=== PATIENT | female | born 1940 | race Caucasian/White ===

== ENCOUNTER 2016-09-27 13:17 | Inpatient (IN) | payer MEDICARE ==
[~2016-09-27] VITALS: Ht 147.3 cm; Wt 65.8 kg
[~2016-09-27 13:17] MED LIST: ACET-2165 PO; BENA40TA2 PO; BISO5TAB15 PO; CHOL100028 PO; FEBU80TA PO; FOLI-43 PO; FURO-150 PO; GABA-531 PO; LEVE500T53 PO; METF-716 PO; NIFE90TA48 PO; PRAV20TA59 PO; PRED20TA PO; SSNOVOLOG SUBCUT; VENL75CA PO; WARF1TAB79 GT
[2016-09-27 13:25] VITALS: BP_SYST 130
[2016-09-27] MEDS ORDERED: MORPHINE 2 MG/ML INJ. SYRINGE IVP ONE (13:30)
[2016-09-27] MEDS ORDERED: ONDANSETRON HCL 4 MG/2 ML VIAL IVP ONE (13:30)
[2016-09-27 15:22] LABS: BASOPHILS % (AUTO) 0.2 % (0.0-2.0); EOSINOPHILS # (AUTO) 0.2 K/uL (0.0-0.4); EOSINOPHILS % (AUTO) 1.5 % (0.0-4.0); LYMPHOCYTES # (AUTO) 1.1 K/uL (1.0-5.5); LYMPHOCYTES % (AUTO) 7.5 % (20.5-51.5); MEAN CORPUSCULAR HEMOGLOBIN 31 pg (27-31); MEAN CORPUSCULAR HGB CONC 32 % (32-36); MEAN CORPUSCULAR VOLUME 95 fL (79.0-98.0); MONOCYTES # (AUTO) 0.8 K/uL (0.0-1.0); MONOCYTES % (AUTO) 5.2 % (1.7-9.3); NEUTROPHILS # (AUTO) 13.2 K/uL (1.8-7.7); NEUTROPHILS % (AUTO) 85.6 % (40.0-70.0); PLATELET COUNT (AUTO) 168 K/uL (130-430); RED BLOOD CELL COUNT(AUTO) 2.59 MIL/uL (4.2-6.2); RED CELL DISTRIBUTION WIDTH 13.6 % (9.0-15.0); WHITE BLOOD COUNT (AUTO) 15.3 K/uL (4.8-10.8)
[2016-09-27 15:28] LABS: HEMATOCRIT 24.7 % (36-48); HEMOGLOBIN 7.9 g/dL (12.0-16.0)
[2016-09-27 15:31] LABS: INR 1.2 (0.8-1.2); PROTHROMBIN TIME 12.7 SECS (9.5-12.5)
[2016-09-27 15:32] LABS: ALANINE AMINOTRANSFERASE 22 U/L (12-78); ANION GAP 9 (5-15); ASPARTATE AMINOTRANSFERASE 17 U/L (10-37); CALCIUM 8.2 mg/dL (8.4-11.0); CHLORIDE 97 mmol/L (98-107); CREATININE 2.54 mg/dL (0.55-1.30); GLUCOSE 223 mg/dL (70-99); POTASSIUM 3.6 mmol/L (3.5-5.1); SODIUM SERUM 133 mmol/L (136-145); TOTAL BILIRUBIN 0.3 mg/dL (0.0-1.0); TOTAL PROTEIN, SERUM 6.9 g/dL (6.4-8.3)
[2016-09-27 15:46] LABS: UREA NITROGEN, BLOOD 106 mg/dL (8-21)
[2016-09-27] MEDS ORDERED: NS 500 ML IV ONE (16:30)
[2016-09-27] MEDS ORDERED: NACL 0.9% 1,000 ML IV ONE (16:30)
[2016-09-27 19:24] VITALS: BP_SYST 147
[2016-09-27 19:25] LABS: BILIRUBIN,URINE NEGATIVE (NEGATIVE); BLOOD, URINE NEGATIVE (NEGATIVE); CLARITY/URINE CLEAR (CLEAR); COLOR,URINE YELLOW (YELLOW); GLUCOSE,URINE NEGATIVE (NEGATIVE); KETONES,URINE NEGATIVE (NEGATIVE); LEUKOCYTE ESTERASE ,URINE NEGATIVE (NEGATIVE); NITRITE, URINE NEGATIVE (NEGATIVE); PROTEIN URINE 1+ (NEGATIVE); UROBILINOGEN,URINE 0.2 (0.2-1.0)
[2016-09-27 19:36] LABS: BACTERIA,URINE FEW /HPF (None Seen); RBC,URINE 0-3 /HPF (0-3); WBC,URINE 0-3 /HPF (0-3)
[2016-09-27 19:37] LABS: MUCUS,URINE None Seen /LPF (None Seen)
[2016-09-27 20:00] VITALS: BP_SYST 143
[2016-09-27] MEDS ORDERED: PRAVASTATIN SODIUM 20 MG TABLET (PRAVACHOL) PO SCH (21:00)
[2016-09-27 21:21] LABS: BLOOD GAS PH 7.408 (7.350-7.450)
[2016-09-27 21:22] LABS: ABG TOTAL HEMOGLOBIN 9.1 G/dL (12.0-18.0); BLOOD GAS BASE EXCESS 0.3 mmol/L (-3.0-3.0); BLOOD GAS COHb% 0.3 % (0.5-1.5); BLOOD O2Hb% 92.2 % (94.0-97.0)
[2016-09-27] MEDS ORDERED: cefTRIAXone 1 GM IVPB PREMIX 50 ML IV ONE (21:30)
[2016-09-27] MEDS: cefTRIAXone 1 GM IVPB PREMIX 50 ML IV SCH (21:37)
[2016-09-27] MEDS: SIMVASTATIN 10 MG TABLET PO SCH (21:40)
[2016-09-27] MEDS: levETIRAcetam 500 MG TABLET PO SCH (21:40)
[2016-09-27] MEDS: NACL 0.9% 1,000 ML IV SCH (21:40)
[2016-09-27] MEDS ORDERED: DEXTROSE 50% JECT 50 ML DISP.SYRIN IVP PRN ×2 (23:15)
[2016-09-27] MEDS: INSULIN REGULAR, HUMAN 100 UNITS/ML, 10 ML VIAL (novoLIN R) SUBCUT PRN (23:26)
[2016-09-28] VITALS (7 sets, daily range): BP systolic 114–155
[2016-09-28 06:21] LABS: BASOPHILS # (AUTO) 0.1 K/uL (0.0-0.2); EOSINOPHILS # (AUTO) 0.1 K/uL (0.0-0.4); HEMOGLOBIN 8.4 g/dL (12.0-16.0); WHITE BLOOD COUNT (AUTO) 19.9 K/uL (4.8-10.8)
[2016-09-28 06:34] LABS: BASOPHILS % (AUTO) 0.4 % (0.0-2.0); EOSINOPHILS % (AUTO) 0.3 % (0.0-4.0); HEMATOCRIT 24.4 % (36-48); LYMPHOCYTES % (AUTO) 4.8 % (20.5-51.5); MEAN CORPUSCULAR HEMOGLOBIN 32 pg (27-31); MEAN CORPUSCULAR HGB CONC 35 % (32-36); MEAN CORPUSCULAR VOLUME 94 fL (79.0-98.0); MONOCYTES # (AUTO) 1.1 K/uL (0.0-1.0); MONOCYTES % (AUTO) 5.5 % (1.7-9.3); NEUTROPHILS # (AUTO) 17.6 K/uL (1.8-7.7); PLATELET COUNT (AUTO) 155 K/uL (130-430); RED BLOOD CELL COUNT(AUTO) 2.59 MIL/uL (4.2-6.2)
[2016-09-28 06:38] LABS: ALANINE AMINOTRANSFERASE 32 U/L (12-78); ANION GAP 7 (5-15); ASPARTATE AMINOTRANSFERASE 27 U/L (10-37); CHLORIDE 101 mmol/L (98-107); CREATININE 2.44 mg/dL (0.55-1.30); GLUCOSE 104 mg/dL (70-99); POTASSIUM 3.5 mmol/L (3.5-5.1); SODIUM SERUM 135 mmol/L (136-145); TOTAL BILIRUBIN 0.3 mg/dL (0.0-1.0); TOTAL PROTEIN, SERUM 7.4 g/dL (6.4-8.3); UREA NITROGEN, BLOOD 91 mg/dL (8-21)
[2016-09-28] MEDS: PREDNISONE 20 MG TABLET PO SCH (08:17)
[2016-09-28] MEDS: levETIRAcetam 500 MG TABLET PO SCH ×2 (08:17→20:32)
[2016-09-28] MEDS: NIFEDIPINE 90 MG TABLET.SA (PROCARDIA XL 90 MG) PO SCH (08:17)
[2016-09-28] MEDS: NACL 0.9% 1,000 ML IV SCH ×2 (08:18→20:34)
[2016-09-28] MEDS: BISOPROLOL FUMARATE 5 MG TABLET PO SCH (08:18)
[2016-09-28] MEDS: MORPHINE 2 MG/ML INJ. SYRINGE IVP PRN ×3 (08:24→17:27)
[2016-09-28] MEDS ORDERED: FEBUXOSTAT 80 MG PO SCH (09:00)
[2016-09-28] MEDS: INSULIN REGULAR, HUMAN 100 UNITS/ML, 10 ML VIAL (novoLIN R) SUBCUT PRN ×3 (11:08→20:36)
[2016-09-28] MEDS ORDERED: ALBUTEROL SULFATE 0.083% 2.5 MG/3 ML VIAL.NEB INH PRN (12:00)
[2016-09-28] MEDS ORDERED: IPRATROPIUM BROM 0.5 MG/2.5 ML VIAL.NEB (ATROVENT) INH PRN (12:00)
[2016-09-28] MEDS: IPRATROPIUM BROM 0.5 MG/2.5 ML VIAL.NEB (ATROVENT) INH SCH ×3 (15:36→23:30)
[2016-09-28] MEDS: ALBUTEROL SULFATE 0.083% 2.5 MG/3 ML VIAL.NEB INH SCH ×3 (15:36→23:30)
[2016-09-28] MEDS: cefTRIAXone 1 GM IVPB PREMIX 50 ML IV SCH (20:16)
[2016-09-28] MEDS: SIMVASTATIN 10 MG TABLET PO SCH (20:32)
[2016-09-28] MEDS: Effexor 37.5 MG TAB PO SCH (20:32)
[2016-09-29] VITALS (11 sets, daily range): BP systolic 112–141
[2016-09-29] MEDS: ALBUTEROL SULFATE 0.083% 2.5 MG/3 ML VIAL.NEB INH SCH ×6 (03:00→23:00)
[2016-09-29] MEDS: IPRATROPIUM BROM 0.5 MG/2.5 ML VIAL.NEB (ATROVENT) INH SCH ×6 (03:00→23:00)
[2016-09-29 06:45] LABS: BASOPHILS # (AUTO) 0.1 K/uL (0.0-0.2); BASOPHILS % (AUTO) 0.7 % (0.0-2.0); EOSINOPHILS % (AUTO) 0.1 % (0.0-4.0); HEMATOCRIT 22.3 % (36-48); HEMOGLOBIN 7.4 g/dL (12.0-16.0); LYMPHOCYTES # (AUTO) 0.8 K/uL (1.0-5.5); LYMPHOCYTES % (AUTO) 4.2 % (20.5-51.5); MEAN CORPUSCULAR HEMOGLOBIN 32 pg (27-31); MEAN CORPUSCULAR HGB CONC 33 % (32-36); MEAN CORPUSCULAR VOLUME 97 fL (79.0-98.0); MONOCYTES # (AUTO) 0.9 K/uL (0.0-1.0); MONOCYTES % (AUTO) 4.7 % (1.7-9.3); NEUTROPHILS # (AUTO) 17.6 K/uL (1.8-7.7); PLATELET COUNT (AUTO) 129 K/uL (130-430); RED CELL DISTRIBUTION WIDTH 13.3 % (9.0-15.0); WHITE BLOOD COUNT (AUTO) 19.4 K/uL (4.8-10.8)
[2016-09-29 07:13] LABS: ALANINE AMINOTRANSFERASE 32 U/L (12-78); ALBUMIN 2.5 g/dL (3.4-4.8); ANION GAP 9 (5-15); ASPARTATE AMINOTRANSFERASE 28 U/L (10-37); CALCIUM 7.6 mg/dL (8.4-11.0); CHLORIDE 101 mmol/L (98-107); CREATININE 2.38 mg/dL (0.55-1.30); GLUCOSE 150 mg/dL (70-99); POTASSIUM 3.6 mmol/L (3.5-5.1); SODIUM SERUM 134 mmol/L (136-145); TOTAL BILIRUBIN 0.2 mg/dL (0.0-1.0); TOTAL PROTEIN, SERUM 6.8 g/dL (6.4-8.3); UREA NITROGEN, BLOOD 81 mg/dL (8-21)
[2016-09-29 07:49] LABS: NEUTROPHILS % (AUTO) 90.3 % (40.0-70.0)
[2016-09-29] MEDS: ACETAMINOPHEN 325 MG TABLET PO PRN (08:47)
[2016-09-29] MEDS: Effexor 37.5 MG TAB PO SCH ×2 (08:47→20:26)
[2016-09-29] MEDS: levETIRAcetam 500 MG TABLET PO SCH ×2 (08:47→20:26)
[2016-09-29] MEDS: PREDNISONE 20 MG TABLET PO SCH (08:47)
[2016-09-29] MEDS: BISOPROLOL FUMARATE 5 MG TABLET PO SCH (08:47)
[2016-09-29] MEDS: NIFEDIPINE 90 MG TABLET.SA (PROCARDIA XL 90 MG) PO SCH (08:47)
[2016-09-29] MEDS: NACL 0.9% 1,000 ML IV SCH (08:48)
[2016-09-29] MEDS ORDERED: DIPHENHYDRAMINE INJ 50 MG/ML VIAL IVP PRN (09:00)
[2016-09-29] MEDS: MORPHINE 2 MG/ML INJ. SYRINGE IVP PRN ×2 (11:26→20:50)
[2016-09-29] MEDS: INSULIN REGULAR, HUMAN 100 UNITS/ML, 10 ML VIAL (novoLIN R) SUBCUT PRN ×3 (11:29→20:58)
[2016-09-29] MEDS: FEBUXOSTAT 80 MG PO SCH (12:28)
[2016-09-29] MEDS ORDERED: FUROSEMIDE 20 MG/2 ML VIAL IVP ONE (19:00)
[2016-09-29] MEDS: SIMVASTATIN 10 MG TABLET PO SCH (20:26)
[2016-09-29] MEDS: cefTRIAXone 1 GM IVPB PREMIX 50 ML IV SCH (20:27)
[2016-09-30] VITALS (7 sets, daily range): BP systolic 120–146
[2016-09-30] MEDS: MORPHINE 2 MG/ML INJ. SYRINGE IVP PRN ×2 (01:44→06:39)
[2016-09-30] MEDS: IPRATROPIUM BROM 0.5 MG/2.5 ML VIAL.NEB (ATROVENT) INH SCH ×6 (02:05→23:00)
[2016-09-30] MEDS: ALBUTEROL SULFATE 0.083% 2.5 MG/3 ML VIAL.NEB INH SCH ×6 (02:05→23:00)
[2016-09-30] MEDS: INSULIN REGULAR, HUMAN 100 UNITS/ML, 10 ML VIAL (novoLIN R) SUBCUT PRN ×3 (06:41→21:30)
[2016-09-30] MEDS: BISOPROLOL FUMARATE 5 MG TABLET PO SCH (09:44)
[2016-09-30] MEDS: Effexor 37.5 MG TAB PO SCH ×2 (09:44→21:11)
[2016-09-30] MEDS: PREDNISONE 20 MG TABLET PO SCH (09:44)
[2016-09-30] MEDS: levETIRAcetam 500 MG TABLET PO SCH ×2 (09:44→21:12)
[2016-09-30] MEDS: FEBUXOSTAT 80 MG PO SCH (09:44)
[2016-09-30] MEDS: NIFEDIPINE 90 MG TABLET.SA (PROCARDIA XL 90 MG) PO SCH (09:44)
[2016-09-30 11:35] LABS: BASOPHILS % (AUTO) 0.2 % (0.0-2.0); EOSINOPHILS % (AUTO) 0.2 % (0.0-4.0); HEMATOCRIT 35.2 % (36-48); HEMOGLOBIN 11.7 g/dL (12.0-16.0); LYMPHOCYTES # (AUTO) 0.4 K/uL (1.0-5.5); LYMPHOCYTES % (AUTO) 3.4 % (20.5-51.5); MEAN CORPUSCULAR HEMOGLOBIN 31 pg (27-31); MEAN CORPUSCULAR HGB CONC 33 % (32-36); MEAN CORPUSCULAR VOLUME 94 fL (79.0-98.0); MONOCYTES # (AUTO) 0.3 K/uL (0.0-1.0); MONOCYTES % (AUTO) 2.6 % (1.7-9.3); NEUTROPHILS # (AUTO) 12.3 K/uL (1.8-7.7); NEUTROPHILS % (AUTO) 93.6 % (40.0-70.0); PLATELET COUNT (AUTO) 170 K/uL (130-430); RED BLOOD CELL COUNT(AUTO) 3.76 MIL/uL (4.2-6.2); RED CELL DISTRIBUTION WIDTH 16.1 % (9.0-15.0)
[2016-09-30 11:38] LABS: ANION GAP 12 (5-15); CHLORIDE 100 mmol/L (98-107); CREATININE 2.74 mg/dL (0.55-1.30); GLUCOSE 183 mg/dL (70-99); POTASSIUM 3.7 mmol/L (3.5-5.1); SODIUM SERUM 133 mmol/L (136-145); UREA NITROGEN, BLOOD 86 mg/dL (8-21)
[2016-09-30 11:43] LABS: ALANINE AMINOTRANSFERASE 29 U/L (12-78); ALBUMIN 2.6 g/dL (3.4-4.8); ASPARTATE AMINOTRANSFERASE 20 U/L (10-37); TOTAL BILIRUBIN 0.3 mg/dL (0.0-1.0); TOTAL PROTEIN, SERUM 7.5 g/dL (6.4-8.3)
[2016-09-30 11:46] LABS: BLOOD GAS PH 7.389 (7.350-7.450)
[2016-09-30 11:47] LABS: ABG TOTAL HEMOGLOBIN 12.3 G/dL (12.0-18.0); BLOOD GAS BASE EXCESS -3.9 mmol/L (-3.0-3.0); BLOOD GAS COHb% 0.3 % (0.5-1.5); BLOOD GAS HHB 24.7 % (0.0-6.0); BLOOD O2Hb% 74.8 % (94.0-97.0)
[2016-09-30] MEDS: SIMVASTATIN 10 MG TABLET PO SCH (21:12)
[2016-09-30] MEDS: cefTRIAXone 1 GM IVPB PREMIX 50 ML IV SCH (21:14)
[2016-10-01 00:15] VITALS: BP_SYST 138
[2016-10-01 04:26] VITALS: BP_SYST 120
[2016-10-01] MEDS: IPRATROPIUM BROM 0.5 MG/2.5 ML VIAL.NEB (ATROVENT) INH SCH ×5 (07:14→23:00)
[2016-10-01] MEDS: ALBUTEROL SULFATE 0.083% 2.5 MG/3 ML VIAL.NEB INH SCH ×5 (07:14→23:00)
[2016-10-01] MEDS ORDERED: FUROSEMIDE 20 MG/2 ML VIAL IVP ONE (08:00)
[2016-10-01 08:39] VITALS: BP_SYST 116
[2016-10-01] MEDS: BISOPROLOL FUMARATE 5 MG TABLET PO SCH (09:47)
[2016-10-01] MEDS: PREDNISONE 20 MG TABLET PO SCH (09:48)
[2016-10-01] MEDS: Effexor 37.5 MG TAB PO SCH ×2 (09:48→21:35)
[2016-10-01] MEDS: levETIRAcetam 500 MG TABLET PO SCH ×2 (09:48→21:35)
[2016-10-01] MEDS: NIFEDIPINE 90 MG TABLET.SA (PROCARDIA XL 90 MG) PO SCH (09:49)
[2016-10-01] MEDS: FEBUXOSTAT 80 MG PO SCH (09:51)
[2016-10-01 10:08] VITALS: BP_SYST 124
[2016-10-01] MEDS: INSULIN REGULAR, HUMAN 100 UNITS/ML, 10 ML VIAL (novoLIN R) SUBCUT PRN ×3 (11:51→22:59)
[2016-10-01 12:29] VITALS: BP_SYST 130
[2016-10-01 16:14] VITALS: BP_SYST 140
[2016-10-01] MEDS: SIMVASTATIN 10 MG TABLET PO SCH (21:34)
[2016-10-01] MEDS: cefTRIAXone 1 GM IVPB PREMIX 50 ML IV SCH (21:36)
[2016-10-02 00:03] VITALS: BP_SYST 118
[2016-10-02] MEDS: IPRATROPIUM BROM 0.5 MG/2.5 ML VIAL.NEB (ATROVENT) INH SCH ×6 (03:00→23:00)
[2016-10-02] MEDS: ALBUTEROL SULFATE 0.083% 2.5 MG/3 ML VIAL.NEB INH SCH ×6 (03:00→23:00)
[2016-10-02 05:57] VITALS: BP_SYST 136
[2016-10-02 08:11] VITALS: BP_SYST 139
[2016-10-02] MEDS: levETIRAcetam 500 MG TABLET PO SCH ×2 (08:58→21:45)
[2016-10-02] MEDS: Effexor 37.5 MG TAB PO SCH ×2 (08:58→21:45)
[2016-10-02] MEDS: NIFEDIPINE 90 MG TABLET.SA (PROCARDIA XL 90 MG) PO SCH (08:58)
[2016-10-02] MEDS: FEBUXOSTAT 80 MG PO SCH (08:59)
[2016-10-02] MEDS: BISOPROLOL FUMARATE 5 MG TABLET PO SCH (08:59)
[2016-10-02] MEDS: PREDNISONE 20 MG TABLET PO SCH (08:59)
[2016-10-02] MEDS ORDERED: FUROSEMIDE 40 MG/4 ML VIAL IVP ONE (09:30)
[2016-10-02] MEDS: DOCUSATE SODIUM 250 MG CAPSULE PO SCH ×2 (10:18→21:45)
[2016-10-02 10:30] LABS: BASOPHILS % (AUTO) 0.2 % (0.0-2.0); EOSINOPHILS % (AUTO) 0.4 % (0.0-4.0); HEMATOCRIT 34.2 % (36-48); HEMOGLOBIN 11.1 g/dL (12.0-16.0); LYMPHOCYTES # (AUTO) 0.5 K/uL (1.0-5.5); LYMPHOCYTES % (AUTO) 5.5 % (20.5-51.5); MEAN CORPUSCULAR HEMOGLOBIN 30 pg (27-31); MEAN CORPUSCULAR HGB CONC 33 % (32-36); MEAN CORPUSCULAR VOLUME 93 fL (79.0-98.0); MONOCYTES # (AUTO) 0.4 K/uL (0.0-1.0); MONOCYTES % (AUTO) 4.5 % (1.7-9.3); NEUTROPHILS % (AUTO) 89.4 % (40.0-70.0); PLATELET COUNT (AUTO) 166 K/uL (130-430); RED BLOOD CELL COUNT(AUTO) 3.68 MIL/uL (4.2-6.2); RED CELL DISTRIBUTION WIDTH 15.5 % (9.0-15.0); WHITE BLOOD COUNT (AUTO) 9.9 K/uL (4.8-10.8)
[2016-10-02 10:33] LABS: ANION GAP 16 (5-15); CALCIUM 8.5 mg/dL (8.4-11.0); CHLORIDE 98 mmol/L (98-107); CREATININE 2.62 mg/dL (0.55-1.30); GLUCOSE 185 mg/dL (70-99); POTASSIUM 3.7 mmol/L (3.5-5.1); SODIUM SERUM 132 mmol/L (136-145)
[2016-10-02 10:39] LABS: UREA NITROGEN, BLOOD 101 mg/dL (8-21)
[2016-10-02] MEDS: INSULIN REGULAR, HUMAN 100 UNITS/ML, 10 ML VIAL (novoLIN R) SUBCUT PRN ×3 (11:28→21:47)
[2016-10-02 11:55] VITALS: BP_SYST 146
[2016-10-02 16:56] VITALS: BP_SYST 149
[2016-10-02] MEDS: cefTRIAXone 1 GM IVPB PREMIX 50 ML IV SCH (21:45)
[2016-10-02] MEDS: SIMVASTATIN 10 MG TABLET PO SCH (21:45)
[2016-10-02 23:56] VITALS: BP_SYST 143
[2016-10-03] MEDS: ALBUTEROL SULFATE 0.083% 2.5 MG/3 ML VIAL.NEB INH SCH ×6 (03:00→23:00)
[2016-10-03] MEDS: IPRATROPIUM BROM 0.5 MG/2.5 ML VIAL.NEB (ATROVENT) INH SCH ×6 (03:00→23:00)
[2016-10-03 04:49] VITALS: BP_SYST 147
[2016-10-03 06:47] LABS: BASOPHILS # (AUTO) 0.1 K/uL (0.0-0.2); BASOPHILS % (AUTO) 0.6 % (0.0-2.0); EOSINOPHILS # (AUTO) 0.1 K/uL (0.0-0.4); EOSINOPHILS % (AUTO) 0.5 % (0.0-4.0); HEMATOCRIT 37.7 % (36-48); HEMOGLOBIN 12.4 g/dL (12.0-16.0); LYMPHOCYTES # (AUTO) 0.5 K/uL (1.0-5.5); LYMPHOCYTES % (AUTO) 3.9 % (20.5-51.5); MEAN CORPUSCULAR HEMOGLOBIN 30 pg (27-31); MEAN CORPUSCULAR HGB CONC 33 % (32-36); MEAN CORPUSCULAR VOLUME 92 fL (79.0-98.0); MONOCYTES # (AUTO) 0.5 K/uL (0.0-1.0); MONOCYTES % (AUTO) 3.9 % (1.7-9.3); NEUTROPHILS # (AUTO) 11.2 K/uL (1.8-7.7); NEUTROPHILS % (AUTO) 91.1 % (40.0-70.0); PLATELET COUNT (AUTO) 194 K/uL (130-430); RED CELL DISTRIBUTION WIDTH 15.1 % (9.0-15.0); WHITE BLOOD COUNT (AUTO) 12.4 K/uL (4.8-10.8)
[2016-10-03 06:56] LABS: ALANINE AMINOTRANSFERASE 41 U/L (12-78); ALBUMIN 2.9 g/dL (3.4-4.8); ANION GAP 14 (5-15); ASPARTATE AMINOTRANSFERASE 29 U/L (10-37); CALCIUM 8.9 mg/dL (8.4-11.0); CHLORIDE 100 mmol/L (98-107); CREATININE 2.53 mg/dL (0.55-1.30); GLUCOSE 111 mg/dL (70-99); POTASSIUM 3.7 mmol/L (3.5-5.1); SODIUM SERUM 134 mmol/L (136-145); TOTAL BILIRUBIN 0.6 mg/dL (0.0-1.0); TOTAL PROTEIN, SERUM 8.1 g/dL (6.4-8.3)
[2016-10-03 07:23] LABS: UREA NITROGEN, BLOOD 102 mg/dL (8-21)
[2016-10-03 07:44] VITALS: BP_SYST 143
[2016-10-03] MEDS: FEBUXOSTAT 80 MG PO SCH (09:00)
[2016-10-03] MEDS: Effexor 37.5 MG TAB PO SCH ×2 (09:10→21:14)
[2016-10-03] MEDS: levETIRAcetam 500 MG TABLET PO SCH ×2 (09:10→21:14)
[2016-10-03] MEDS: NIFEDIPINE 90 MG TABLET.SA (PROCARDIA XL 90 MG) PO SCH (09:10)
[2016-10-03] MEDS: DOCUSATE SODIUM 250 MG CAPSULE PO SCH ×2 (09:10→21:14)
[2016-10-03] MEDS: BISOPROLOL FUMARATE 5 MG TABLET PO SCH (09:11)
[2016-10-03] MEDS: ACETAMINOPHEN 325 MG TABLET PO PRN (10:04)
[2016-10-03 12:11] VITALS: BP_SYST 155
[2016-10-03] MEDS ORDERED: NACL 0.9% 1,000 ML IV SCH (12:25)
[2016-10-03 16:06] VITALS: BP_SYST 137
[2016-10-03] MEDS: INSULIN REGULAR, HUMAN 100 UNITS/ML, 10 ML VIAL (novoLIN R) SUBCUT PRN (17:39)
[2016-10-03 20:30] VITALS: BP_SYST 142
[2016-10-03] MEDS ORDERED: MINERAL OIL 30 ML UDC PO ONE (21:00)
[2016-10-03] MEDS: SIMVASTATIN 10 MG TABLET PO SCH (21:14)
[2016-10-03] MEDS: cefTRIAXone 1 GM IVPB PREMIX 50 ML IV SCH (21:14)
[2016-10-04 00:25] VITALS: BP_SYST 146
[2016-10-04] MEDS: IPRATROPIUM BROM 0.5 MG/2.5 ML VIAL.NEB (ATROVENT) INH SCH ×3 (03:00→11:16)
[2016-10-04] MEDS: ALBUTEROL SULFATE 0.083% 2.5 MG/3 ML VIAL.NEB INH SCH ×3 (03:00→11:16)
[2016-10-04 03:50] VITALS: BP_SYST 136
[2016-10-04 06:45] LABS: ANION GAP 12 (5-15); CALCIUM 8.2 mg/dL (8.4-11.0); CHLORIDE 108 mmol/L (98-107); CREATININE 2.17 mg/dL (0.55-1.30); GLUCOSE 167 mg/dL (70-99); POTASSIUM 3.4 mmol/L (3.5-5.1); SODIUM SERUM 140 mmol/L (136-145); UREA NITROGEN, BLOOD 84 mg/dL (8-21)
[2016-10-04] MEDS: INSULIN REGULAR, HUMAN 100 UNITS/ML, 10 ML VIAL (novoLIN R) SUBCUT PRN (06:55)
[2016-10-04] MEDS: BISOPROLOL FUMARATE 5 MG TABLET PO SCH (08:54)
[2016-10-04] MEDS: DOCUSATE SODIUM 250 MG CAPSULE PO SCH (08:54)
[2016-10-04] MEDS: levETIRAcetam 500 MG TABLET PO SCH (08:54)
[2016-10-04] MEDS: Effexor 37.5 MG TAB PO SCH (08:54)
[2016-10-04] MEDS: FEBUXOSTAT 80 MG PO SCH (08:55)
[2016-10-04] MEDS: NIFEDIPINE 90 MG TABLET.SA (PROCARDIA XL 90 MG) PO SCH (08:55)
[2016-10-04 09:02] VITALS: BP_SYST 143
[2016-10-04 12:02] VITALS: BP_SYST 157
== END 2016-10-04 14:00 | disposition home or self-care (01) | DRG 682 ==
LOC: SED 15:45 → STU 16:35 → SMU 10-02 09:26
PROVIDERS: ADMIT Internal Medicine Hospice and Palliative Medicine; ATTEND Internal Medicine Hospice and Palliative Medicine
PROC: 30233N1 Transfusion of Nonautologous Red Blood Cells into Peripheral Vein, Percutaneous Approach (ICD-10-PCS; principal; 2016-09-29)
DX: N17.0 Acute kidney failure with tubular necrosis (principal); J96.01 Acute respiratory failure with hypoxia; N39.0 Urinary tract infection, site not specified; J81.1 Chronic pulmonary edema; I13.0 Hypertensive heart and chronic kidney disease with heart failure and stage 1 through stage 4 chronic kidney disease, or unspecified chronic kidney disease; J98.11 Atelectasis; E11.42 Type 2 diabetes mellitus with diabetic polyneuropathy; E66.9 Obesity, unspecified; E86.0 Dehydration; D64.9 Anemia, unspecified; E11.22 Type 2 diabetes mellitus with diabetic chronic kidney disease; N18.9 Chronic kidney disease, unspecified; I25.10 Atherosclerotic heart disease of native coronary artery without angina pectoris; E78.5 Hyperlipidemia, unspecified; M19.90 Unspecified osteoarthritis, unspecified site; G89.29 Other chronic pain; I50.9 Heart failure, unspecified; Z89.429 Acquired absence of other toe(s), unspecified side; Z68.30 Body mass index [BMI] 30.0-30.9, adult; Z79.899 Other long term (current) drug therapy; Z79.4 Long term (current) use of insulin; Z95.1 Presence of aortocoronary bypass graft; Z86.73 Personal history of transient ischemic attack (TIA), and cerebral infarction without residual deficits; Z83.3 Family history of diabetes mellitus; Z82.49 Family history of ischemic heart disease and other diseases of the circulatory system; Z90.49 Acquired absence of other specified parts of digestive tract
CPT/HCPCS: 36415; 36600; 70450-TC; 71010; 76770; 80048; 80053; 81000-TC; 82803-TC; 82962; 83880; 84484; 85025; 85610-TC; 85730-TC; 86886; 86900; 86901; 86920; 93005; 93306; 94010; 94640; 94760; 96374; 96375; 97110-GP; 97530-GP; 99285; J0696; J1200; J1815; J1940; J2270; J2405; J7030; J7040; J7060; J7512; P9021